=== PATIENT | female | born 1975 | race Caucasian/White ===

== ENCOUNTER 2016-12-08 19:13 | Emergency (ER) | payer OTHER ==
[~2016-12-08 19:13] MED LIST: ALAVERT10 M1 PO; ALBUTEROL17 GM; AZITHROMYCIN250 MG; BACTRIM DS TABL1 TA1 PO; CELEBREX PO; CIPRO PO; CLARITIN-D1 TAB 24 H PO; FLAGYL PO; HYDROCODON-ACE1 EAC1 PO; LAMICTAL100 MG PO; LATUDA20 MG PO; LATUDA60 MG PO; MEDROL4 MG/DOSE-; NEURONTIN600 MG PO; NO MEDICATIONS; OXYCODONE; PHENERGAN25 M1 PO; PYRIDIUM PO; REXULTI1 MG; SINGULAIR PO; SYMBICORT INH; VOLTAREN75 MG PO; XANAX1 MG PO; ZOFRAN ODT4 MG PO; ZYLOPRIM PO
== END 2016-12-08 22:14 | disposition left against medical advice (07) ==
LOC: CED 19:13
DX: Z53.21 Procedure and treatment not carried out due to patient leaving prior to being seen by health care provider (principal)

== ENCOUNTER 2016-12-09 14:30 | Emergency (ER) | payer MEDICARE, OTHER ==
--- NOTE | ~2016-12-09 | CT71 ---
[facility] A Service of [facility] RADIOLOGY TEXT RESULTS PATIENT: ELIZABETH ADAMS LOCATION: SED : 75 UNIT #: [id number] AGE: [address]: Jose Manuel Mathur DO SEX: F ORDER DR: [id number] [address] [address] [id number] E MR#: [id number] Acc #: [id number] NAME: ELIZABETH ADAMS : 1975 SEX: F STUDY DATE/TIME: 12/09/2016 15:02 UNIT: SED ROOM: STUDY DESCRIPTION: CT Head Wo Contrast Attending Physician: Jose Manuel Mathur Referring Physician: Jose Manuel Mathur Ordering Physician: Jose Manuel Mathur Primary Care Physician: Jose Manuel Rush M.D. MEDICAL IMAGING REPORT This report is preliminary unless electronic signature is present. EXAM Head CT without HISTORY Headache all over. Cough for 3 days. History of anxiety depression. Diabetes drug abuse. COMMENT Routine noncontrast head CT is reviewed. There is no displaced calvarial fracture. Right sided mastoid air cells are underpneumotized and minimally opacified. Mild mucosal thickening in the paranasal sinuses but no sinus air fluid level. There is no extraaxial fluid collection or acute intravenous hemorrhage. The ventricles are normal in size and configuration. Ignacio white junction is relatively well maintained. The basilar cisterns are patent. No intracranial mass effect. No acute cortical infarct is suspected. Minor paranasal sinus disease otherwise essentially negative noncontrast head CT. If there is clinical concern for acute CVA follow-up imaging would be suggested preferably with an MRI. Dictated by... Shelly Bustamante M.D. THIS IS AN ELECTRONICALLY VERIFIED REPORT Shelly Bustamante M.D. at 12/10/2016 1:43 PM SAC/rnr TD: 12/10/2016 03:33 [facility] A Service of [facility] RADIOLOGY TEXT RESULTS PATIENT: ELIZABETH ADAMS [id number] [birth year] UNIT #: [id number] AGE: [address]: Jose Manuel Mathur DO SEX: F ORDER DR: IRON #: [id number] MEDICAL IMAGING REPORT Page 1 of 1
--- NOTE | ~2016-12-09 | CR72 ---
[facility]. [facility] A Service of [facility] RADIOLOGY TEXT RESULTS PATIENT: ELIZABETH ADAMS LOCATION: SED : 75 UNIT #: [id number] AGE: [address]: Jose Manuel Mathur DO SEX: F ORDER DR: [id number] [address] [address] [id number] E MR#: [id number] Acc #: [id number] NAME: ELIZABETH ADAMS : 1975 SEX: F STUDY DATE/TIME: 12/09/2016 15:03 UNIT: SED ROOM: STUDY DESCRIPTION: CR Chest Single View Portable Attending Physician: Jose Manuel Mathur Referring Physician: Jose Manuel Mathur Ordering Physician: Jose Manuel Mathur Primary Care Physician: Jose Manuel Rush M.D. MEDICAL IMAGING REPORT This report is preliminary unless electronic signature is present. EXAM Portable chest INDICATIONS Cough for 3 days. COMPARISON 07/06/2016 FINDINGS The lungs are well expanded. No acute infiltrate. Heart size normal. Visualized osseous structures unremarkable. IMPRESSION No active disease Dictated by... Devon Dewitt M.D. THIS IS AN ELECTRONICALLY VERIFIED REPORT Devon Dewitt M.D. at 12/10/2016 3:49 PM JOSE/jazzy TD: 12/10/2016 03:16 JOB #: [id number] MEDICAL IMAGING REPORT Page 1 of 1
--- NOTE | ~2016-12-09 | EKG ---
PATIENT: ELIZABETH ADAMS UNIT #: [id number] Ventricular Rate: 74 BPM Atrial Rate: 74 BPM P-R Interval: 134 ms QRS Duration: 80 ms Q-T Interval: 442 ms QTC Calculation(Bezet): 490 ms P Arcadia: 50 degrees Calculated R Arcadia: 18 degrees Calculated T Arcadia: 58 degrees Diagnosis Line: Normal sinus rhythm Diagnosis Line: Cannot rule out Anterior infarct , age Diagnosis Line: undetermined Diagnosis Line: Abnormal ECG Diagnosis Line: Diagnosis Line: Confirmed by AXEL SYED MD ([id number]) on Diagnosis Line: 12/12/2016 1:26:10 PM INTERPRETING MD: YAHAIRA GODINEZ
[2016-12-09 14:51] LABS: BASOPHIL# 0.2 X10e3 (0-0.3); BASOPHIL% 1.4 % (0-2.5); EOSINOPHIL# 0.1 X10e3 (0-0.7); EOSINOPHIL% 0.9 % (0.0-7.0); HEMATOCRIT 40.2 % (35.0-45.0); HEMOGLOBIN 13.6 gm/dL (12.0-16.0); LYMPHOCYTE# 3.1 X10e3 (1.0-3.5); LYMPHOCYTE% 25.2 % (17.0-45.0); MEAN CELL VOLUME 89.7 FL (83-96); MEAN CORPUSCULAR HEMOGLOBIN 30.4 PG (28-34); MEAN CORPUSCULAR HGB CONC 33.9 g/dL (30-36); MEAN PLATELET VOLUME 9.9 FL (6.5-11.5); MONOCYTE# 0.6 X10e3 (0-1.0); MONOCYTE% 4.5 % (3.0-12.0); NEUTROPHIL# 8.3 X10e3 (1.5-7.1); PLATELET COUNT 321 X10e3 (140-420); RED BLOOD COUNT 4.48 X10e (3.90-5.30); RED CELL DISTRIBUTION WIDTH 14.3 % (11.0-15.5); WHITE BLOOD COUNT 12.2 X10e3 (4.0-10.5)
[2016-12-09 14:58] LABS: DIFF IND NO
[2016-12-09 15:07] LABS: ALBUMIN SERUM 4.3 g/dL (3.5-5.0); ALKALINE PHOSPHATASE 70 U/L (32-92); ALT (SGPT) 12 U/L (10-40); AST (SGOT) 21 U/L (10-42); BILIRUBIN, DIRECT 0.2 mg/dL (0.0-0.2); BILIRUBIN,INDIRECT 0.5 mg/dL (0.0-0.9); BILIRUBIN,TOTAL 0.7 mg/dL (0.2-2.0); BLOOD UREA NITROGEN 9 mg/dL (9-23); CALCIUM SERUM 9.2 mg/dL (8.4-10.2); CARBON DIOXIDE 24 mmol/L (22-31); CHLORIDE 106 mmol/L (100-111); CREATININE SERUM 0.5 mg/dL (0.6-1.4); GLOM FILT RATE Estimated 120.2 mL/min (>60); GLUCOSE FASTING 106 mg/dL (70-110); POTASSIUM 3.8 mmol/L (3.5-5.1); PROTEIN TOTAL SERUM 7.5 g/dL (6.0-8.3); SODIUM 137 mmol/L (135-145)
[2016-12-09 15:12] LABS: ALCOHOL BLOOD <5 mg/dL (0)
[2016-12-09 15:15] LABS: POC - TROPONIN <0.05 ng/mL (<=0.05)
[2016-12-09 15:33] LABS: URINE SOURCE CLEAN CATCH
[2016-12-09 15:38] LABS: URINE APPEARANCE CLEAR; URINE BILIRUBIN NEG (NEG); URINE BLOOD NEG (NEG); URINE COLOR YELLOW; URINE GLUCOSE NEG (NORM); URINE KETONE NEG (NEG); URINE LEUKOCYTE ESTERASE NEG (NEG); URINE NITRATE NEG (NEG); URINE PROTEIN NEG (NEG)
[2016-12-09 15:39] LABS: MICRO INDICATED? NO
[2016-12-09 15:50] LABS: AMPHETAMINE POS (NEG); BARBITURATES NEG (NEG); BENZODIAZEPINES NEG (NEG); COCAINE NEG (NEG); MARIJUANA POS (NEG); OPIATES NEG (NEG); TRICYCLIC ANTIDEPRESSANTS NEG (NEG); U METHADONE NEG (NEG)
== END 2016-12-09 16:50 | disposition home or self-care (01) ==
LOC: SED 14:30
PROVIDERS: Emergency Medicine
DX: G56.00 Carpal tunnel syndrome, unspecified upper limb (principal); F41.9 Anxiety disorder, unspecified; F17.200 Nicotine dependence, unspecified, uncomplicated; Z88.2 Allergy status to sulfonamides; Z88.8 Allergy status to other drugs, medicaments and biological substances
CPT/HCPCS: 70450; 71010; 80048; 80076; 80307; 81003; 82553; 84484; 84703; 85025; 93005; 96374; 99284; G0480; J2060

== ENCOUNTER 2016-12-26 07:00 | Inpatient (IN) | payer MEDICARE, OTHER ==
--- NOTE | ~2016-12-26 | PN ---
Unit #: [id number] #: [id number] Patient: ELIZABETH ADASM CROCKETT [id number] [facility] [address] [place] [address] [id number] I MR#: [id number] NAME: ELIZABETH ADAMS ROOM: P259 Age: 41 Sex: F Admission Date: 12/26/2016 : 1975 Attending Physician: Marbin Darden M.D. Admitting Physician: Marbin Darden M.D. Primary Care Physician: Jayjay Walter PROGRESS NOTES DATE 12/28/2016 DISCUSSION The patient has been complaining of severe nausea today. She feels as though this may have been something she ate at lunch. She did not feel it immediately after her first dose of Cymbalta. I will add p.r.n. Brittafran. The patient remains on suicide precautions bedtime does report some reduction in suicidal ideation. She continues to state that she will return to her car upon her discharge from this facility. I will ask her social services manager to see her regarding other possible options for housing following discharge, i.e., local homeless shelters most likely. Dictated by... Marbin Darden M.D. CB/tony TD: 12/28/2016 14:34 JOB #: [id number] HELEN PROGRESS NOTES Page 1 of 1 X Marbin Darden MD X PROGRESS NOTE
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
--- NOTE | ~2016-12-26 | HP ---
Unit #: [id number] #: [id number] Patient: WALTER ADAMS [place] [id number] [place] [address] [id number] I MR#: [id number] NAME: WALTER ADAMS ROOM: P259 Age: 41 Sex: F Admission Date: 12/26/2016 : 1975 Attending Physician: Marbin Darden M.D. Admitting Physician: Marbin Darden M.D. Primary Care Physician: Jose Manuel Rush M.D. HISTORY AND PHYSICAL HISTORY OF PRESENT ILLNESS Walter is a 41 year old admitted to [address] [place] [address] with depression and verbalizing wanting to hurt herself. PAST MEDICAL HISTORY 1. Diabetes mellitus 2. COPD PAST SURGICAL HISTORY 1. Tubal ligation 2. T & A 3. Bilateral PE tubes ALLERGIES Sulfa, meperidine, ketorolac, butorphanol. SOCIAL HISTORY Smokes one-half pack per day. Denies alcohol. Admits to using marijuana on a daily basis and has a history of IV methamphetamine but denies anything currently. FAMILY HISTORY Medically noncontributory. REVIEW OF SYSTEMS CONSTITUTIONAL: No fever or chills. HEENT: Denies any sore throat, ear pain or runny nose. CARDIOVASCULAR: Denies chest pain, irregular heart rhythm or palpitations. CHEST: Denies shortness of breath or cough. No hemoptysis. GASTROINTESTINAL: Denies nausea, vomiting, diarrhea or chronic constipation. ENDOCRINE: Denies history of increased thirst or urination. No recent significant weight loss or gain. GENITOURINARY: Denies dysuria, frequency, or hematuria. SKIN: Denies any rashes. HEMATOLOGIC: Denies history of increased bleeding or bruising. MUSCULOSKELETAL: Denies any hot, swollen joints. No generalized muscle pain. NEUROLOGIC: Denies problems with vision or speech. No frequent, severe headaches. No numbness, tingling or weakness in any extremities. Denies loss of bladder or bowel control. Unit #: [id number] #: [id number] Patient: WALTER ADAMSALISIA CURRENT MEDICATIONS 1. Vistaril 50 mg q.h.s. p.r.n. 2. Milk of Magnesia p.r.n. 3. Maalox p.r.n. 4. Tylenol p.r.n. 5. Nicotine patch 14 mg q day PHYSICAL EXAMINATION GENERAL: Alert, well-nourished, in no apparent distress. VITAL SIGNS: Blood pressure 124/80, heart rate 70, respirations 16, temperature 98.6. WEIGHT: 150 pounds. HEIGHT: 5'5". SKIN: Warm and dry without rash or lesion. HEENT: Normocephalic. TMs not viewed. Oral and nasal passages clear. Conjunctivae clear. Pupils equal, round and reactive to light and accommodation. Extraocular movements intact. NECK: Supple without lymphadenopathy or thyromegaly. HEART: Regular rate and rhythm without murmur. LUNGS: Clear. ABDOMEN: Soft, nontender. : Not done. EXTREMITIES: No evidence of cyanosis, clubbing or edema. Moves all extremities without focal deficit. NEUROLOGICAL: Grossly within normal limits. Cranial Nerves: II: Visual castaneda are intact. III, IV AND : Extraocular movements are intact. Pupils are equal, round and reactive to light. V: Facial sensation is grossly normal. VII: Facial movements and expression are normal. VIII: Auditory acuity grossly intact. IX, X: Uvula is midline. Phonation is normal. XI: Patient shrugs shoulders and turns head normally. XII: Tongue protrudes in the midline. Sensory and Motor Function: Sensory and motor sensation is grossly normal. Motor: moves all extremities well. Coordination: Gait is normal. Deep Tendon Reflexes: Intact. IMPRESSION Psychiatric admission RECOMMENDATIONS PSYCHIATRIC: Per psychiatrist. MEDICAL: I see no contraindications to participating in facility's activities. MEDICAL PROGNOSIS Good. MEDICAL CONDITION Stable. Dictated by... Dianne Holder P.A.-C. for Iwona Billingsley M.D. Unit #: [id number] #: [id number] Patient: WALTER ADAMS CHRISTINA/isela TD: 12/27/2016 03:35 JOB #: [id number] HISTORY AND PHYSICAL Page 1 of 1 X Dianne Holder X HISTORY AND PHYSICAL
--- NOTE | ~2016-12-26 | DS ---
Unit #: [id number] #: [id number] Patient: ELIZABETH ADAMS [id number] [facility] [address] [place] [address] [id number] I MR#: [id number] NAME: ELIZABETH ADAMS ROOM: P259 Age: 41 Sex: F Admission Date: 12/26/2016 : 1975 Discharge Date: 12/29/2016 Attending Physician: Marbin Darden M.D. Primary Care Physician: Jose Manuel Rush M.D. DISCHARGE SUMMARY REASON FOR ADMISSION The patient is a 41-year-old white female, admitted with increasing depression and suicidal ideation. HOSPITAL COURSE The patient was admitted to the [facility] unit and placed on suicide precautions. She was begun on Cymbalta 30 mg daily to address depressive symptoms. The patient's stay in the hospital was a fairly uneventful one. She showed slow, but steady improvement, though her participation within the therapeutic milieu, left much to be desired. By 12/29/2016, the patient requested discharge and it was so ordered. FINAL DIAGNOSES Major depressive disorder, recurrent, moderate. DISPOSITION ON DISCHARGE The patient is discharged on the following medications: Cymbalta 30 mg daily x5 days, then 60 mg daily for depression and Vistaril 50 mg q.6 hours p.r.n. anxiety. DISCHARGE INSTRUCTIONS No dietary or physical restrictions were placed upon the patient at the time of discharge. FOLLOWUP Followup will take place through the auspices of community mental health resources. The patient declines an offer of intensive outpatient program stating a need to return to work. PROGNOSIS Her prognosis is considered good. Dictated by... Marbin Darden M.D. CB/vick TD: 12/29/2016 14:10 JOB #: [id number] Unit #: [id number] #: [id number] Patient: ELIZABETH ADAMS DISCHARGE SUMMARY Page 1 of 1 X Marbin Darden MD X DISCHARGE SUMMARY
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
[2016-12-27 09:38] LABS: BASOPHIL# 0.1 X10e3 (0-0.3); BASOPHIL% 0.8 % (0-2.5); EOSINOPHIL# 0.2 X10e3 (0-0.7); EOSINOPHIL% 1.4 % (0.0-7.0); HEMATOCRIT 42.7 % (35.0-45.0); HEMOGLOBIN 14.2 gm/dL (12.0-16.0); LYMPHOCYTE# 2.6 X10e3 (1.0-3.5); LYMPHOCYTE% 24.2 % (17.0-45.0); MEAN CELL VOLUME 91.7 FL (83-96); MEAN CORPUSCULAR HEMOGLOBIN 30.4 PG (28-34); MEAN CORPUSCULAR HGB CONC 33.2 g/dL (30-36); MEAN PLATELET VOLUME 9.9 FL (6.5-11.5); MONOCYTE# 0.7 X10e3 (0-1.0); MONOCYTE% 6.2 % (3.0-12.0); NEUTROPHIL# 7.1 X10e3 (1.5-7.1); NEUTROPHIL% 67.4 % (40-75); PLATELET COUNT 319 X10e3 (140-420); RED BLOOD COUNT 4.66 X10e (3.90-5.30); RED CELL DISTRIBUTION WIDTH 13.6 % (11.0-15.5); WHITE BLOOD COUNT 10.6 X10e3 (4.0-10.5)
[2016-12-27 09:46] LABS: DIFF IND NO
[2016-12-27 09:51] LABS: BILIRUBIN,TOTAL 1.1 mg/dL (0.2-2.0); CALCIUM SERUM 9.2 mg/dL (8.4-10.2); CREATININE SERUM 0.6 mg/dL (0.6-1.4); GLOM FILT RATE Estimated 113.2 mL/min (>60); POTASSIUM 4.3 mmol/L (3.5-5.1); PROTEIN TOTAL SERUM 7.1 g/dL (6.0-8.3)
== END 2016-12-29 16:00 | disposition home or self-care (01) | DRG 885 ==
LOC: P2L 11:21 → POF 11:21 → P2L 11:36
PROVIDERS: Specialist
DX: F33.1 Major depressive disorder, recurrent, moderate (principal); R45.851 Suicidal ideations; E11.9 Type 2 diabetes mellitus without complications; F12.10 Cannabis abuse, uncomplicated; Z59.0 Homelessness; G89.29 Other chronic pain; Z91.5 Personal history of self-harm; Z88.2 Allergy status to sulfonamides; Z88.5 Allergy status to narcotic agent; Z88.8 Allergy status to other drugs, medicaments and biological substances; J44.9 Chronic obstructive pulmonary disease, unspecified; Z98.51 Tubal ligation status; F17.210 Nicotine dependence, cigarettes, uncomplicated
CPT/HCPCS: 80053; 84703; 85025; 99285; J3230

== ENCOUNTER 2017-01-31 18:14 | Emergency (ER) | payer MEDICARE, OTHER ==
--- NOTE | ~2017-01-31 | CT4 ---
[facility] A Service of [facility] RADIOLOGY TEXT RESULTS PATIENT: ELIZABETH ADAMS LOCATION: CFTX : 75 UNIT #: [id number] AGE: [address]: RICO STONER APRN SEX: F ORDER DR: [id number] [facility] [address] [place], [place] [address] [id number] E MR#: [id number] Acc #: [id number] NAME: ELIZABETH ADAMS : 1975 SEX: F STUDY DATE/TIME: 01/31/2017 20:59 UNIT: CFWY ROOM: STUDY DESCRIPTION: CT Abd and Pelv Wo Cont Attending Physician: Rico Stoner Aprn Ordering Physician: Rico Stoner Aprn Primary Care Physician: Jose Manuel Rush M.D. MEDICAL IMAGING REPORT This report is preliminary unless electronic signature is present EXAM CT abdomen and pelvis without contrast HISTORY Low back pain and pelvic pain and dysuria for [address] abdomen and pelvis was performed without contrast. This CT exam was performed with one or more of the following radiation dose reduction techniques: Automatic exposure control, adjustment of mA and/or kV according to patient size, and iterative reconstruction. CT ABDOMEN: The liver, gallbladder, spleen, pancreas, kidneys, and adrenal glands are normal. No renal calculi. No perinephric stranding. No bowel dilatation. No ascites. Normal caliber abdominal aorta. CT PELVIS: Uterus and adnexa are unremarkable. No free fluid. No bowel dilatation. IMPRESSION 1. Negative noncontrast CT abdomen and pelvis. 2. No urinary calculi or obstruction. 3. No inflammatory changes or free fluid. Dictated by... Slick Keller M.D. THIS IS AN ELECTRONICALLY VERIFIED REPORT Slick Keller M.D. at 02/01/2017 2:03 PM DFL/psc TD: 01/31/2017 23:52 [facility] A Service of [facility] RADIOLOGY TEXT RESULTS PATIENT: ELIZABETH ADAMS LOCATION: [facility] : 75 UNIT #: [id number] AGE: [address]: RICO STONER APRN SEX: F ORDER DR: IRON #: [id number] MEDICAL IMAGING REPORT Page 1 of 1 COPY
[2017-01-31 18:34] LABS: URINE SOURCE CLEAN CATCH
[2017-01-31 18:44] LABS: URINE APPEARANCE CLOUDY; URINE BILIRUBIN NEG (NEG); URINE BLOOD NEG (NEG); URINE COLOR YELLOW; URINE GLUCOSE NEG (NEG); URINE KETONE TRACE (NEG); URINE LEUKOCYTE ESTERASE NEG (NEG); URINE NITRATE NEG (NEG); URINE PROTEIN NEG (NEG); URINE SPECIFIC GRAVITY 1.018 (1.003-1.035)
[2017-01-31 18:47] LABS: CULTURE INDICATED? NO
[2017-01-31 21:39] LABS: CREATININE SERUM 0.5 mg/dL (0.6-1.4); GLOM FILT RATE Estimated 120.2 mL/min (>60); POTASSIUM 3.7 mmol/L (3.5-5.1)
== END 2017-01-31 23:20 | disposition home or self-care (01) ==
LOC: CED 18:14 → CFTX 18:14
PROVIDERS: Emergency Medicine; Nurse Practitioner Family
DX: R30.0 Dysuria (principal); K58.9 Irritable bowel syndrome, unspecified; F41.9 Anxiety disorder, unspecified; J45.909 Unspecified asthma, uncomplicated; J44.9 Chronic obstructive pulmonary disease, unspecified; F17.210 Nicotine dependence, cigarettes, uncomplicated; Z87.442 Personal history of urinary calculi; Z98.51 Tubal ligation status; Z90.89 Acquired absence of other organs; Z98.890 Other specified postprocedural states; Z88.2 Allergy status to sulfonamides; Z88.6 Allergy status to analgesic agent; Z88.8 Allergy status to other drugs, medicaments and biological substances
CPT/HCPCS: 36415; 74176; 80048; 81003; 84703; 99284

== ENCOUNTER 2017-03-31 22:11 | Emergency (ER) | payer MEDICARE, OTHER ==
[~2017-03-31] VITALS: Ht 165.1 cm; Wt 79.4 kg
--- NOTE | ~2017-03-31 | CR126 ---
[facility] A Service of [facility] RADIOLOGY TEXT RESULTS PATIENT: ELIZABETH ADAMS LOCATION: [facility] : 75 UNIT #: [id number] AGE: [address]: Clifton Goode SEX: F ORDER DR: [id number] [facility] [address] [facility] [place], [place] [address] [id number] E MR#: [id number] Acc #: [id number] NAME: ELIZABETH ADAMS : 1975 SEX: F STUDY DATE/TIME: 03/31/2017 23:31 UNIT: [facility] ROOM: STUDY DESCRIPTION: CR Foot Complete Min 3 View Lt Attending Physician: Clifton Goode P.A.-C. Ordering Physician: Clifton Goode P.A.-C. Primary Care Physician: Jose Manuel Rush M.D. MEDICAL IMAGING REPORT This report is preliminary unless electronic signature is present EXAM Left foot series INDICATION Left foot pain after an injury today. PROCEDURE Three views of the left foot. COMPARISON None. FINDINGS No acute fracture or dislocation. IMPRESSION No acute findings. Dictated by... Elpidio Matthews M.D. THIS IS AN ELECTRONICALLY VERIFIED REPORT Elpidio Matthews M.D. at 04/02/2017 10:02 PM DAIANA/aroldo TD: 04/01/2017 13:33 JOB #: [id number] MEDICAL IMAGING REPORT Page 1 of 1 COPY
== END 2017-04-01 00:27 | disposition home or self-care (01) ==
LOC: CED 22:11 → CFTX 22:11
DX: S90.32XA Contusion of left foot, initial encounter (principal); F17.210 Nicotine dependence, cigarettes, uncomplicated; Z88.2 Allergy status to sulfonamides; W20.8XXA Other cause of strike by thrown, projected or falling object, initial encounter; Y92.009 Unspecified place in unspecified non-institutional (private) residence as the place of occurrence of the external cause
CPT/HCPCS: 29540; 73630; 99283